=== PATIENT | male | born 1990 | race Caucasian/White ===

== ENCOUNTER 2018-09-17 07:03 | Emergency (ER) | payer BC ==
[2018-09-17 07:32] VITALS: BP 128/69
[2018-09-17 07:51] LABS: Influenza A Molecular NEGATIVE (Negative); Influenza B Molecular NEGATIVE (Negative)
--- NOTE | 2018-09-17 08:14 | UC ---
Hypertension HPI - History of Current Complaint Chief Complaint: UCGeneralIllness Stated Complaint: FEVER,ACHES,COUGH Time Seen by Provider: 09/17/18 07:59 - Allergies/Home Medications Allergies/Adverse Reactions: Allergies Allergy/AdvReac Type Severity Reaction Status Date / Time No Known Allergies Allergy Verified 09/17/18 07:29 Home Medications: Home Medications Lisinopril TAB* [Prinivil TAB*] 2.5 mg PO DAILY 09/17/18 [History Confirmed 10/04] PMH/Surg Hx/FS Hx/Imm Hx - Surgical History Surgical History: None - Social History Alcohol Use: Occasionally Substance Use Type: None Smoking Status (MU): Never Smoked Tobacco Physical Exam Vital Signs: Initial Vital Signs Temp 98.4 F 09/17/18 07:28 Pulse 102 09/17/18 07:28 Resp 16 09/17/18 07:28 BP 128/69 09/17/18 07:28 Pulse Ox 98 09/17/18 07:28 Discharge - Discharge Plan Referrals: Sammi Silva PA [Primary Care Provider] -
--- NOTE | 2018-09-17 08:28 | UC ---
FLU HPI - HPI Summary HPI Summary: Pt presents with c/o sudden onset of body aches chills fever cough X 1 day. Pt is concerned he has the flu. - History of Current Complaint Chief Complaint: UCGeneralIllness Stated Complaint: FEVER,ACHES,COUGH Time Seen by Provider: 09/17/18 07:59 Hx Obtained From: Patient Onset/Duration: Sudden Onset, Lasting Days, Still Present Severity Currently: Mild Severity Initially: Mild Pain Intensity: 3 Associated Signs & Symptoms: Positive: Fever, Myalgia, Cough Related Hx: Possible Flu/Infectious Exposure - Risk Factors Influenza Risk Factors: Negative - Allergy/Home Medications Allergies/Adverse Reactions: Allergies Allergy/AdvReac Type Severity Reaction Status Date / Time No Known Allergies Allergy Verified 09/17/18 07:29 Home Medications: Home Medications Lisinopril TAB* [Prinivil TAB*] 2.5 mg PO DAILY 09/17/18 [History Confirmed 10/04] PMH/Surg Hx/FS Hx/Imm Hx Previously Healthy: Yes - Surgical History Surgical History: None - Family History Known Family History: Positive: Cardiac Disease - Social History Occupation: Employed Full-time Lives: With Family Alcohol Use: Occasionally Substance Use Type: None Smoking Status (MU): Never Smoked Tobacco Have You Smoked in the Last Year: No Review of Systems All Other Systems Reviewed And Are Negative: Yes Constitutional: Positive: Fever, Chills, Fatigue Skin: Positive: Negative Eyes: Positive: Negative ENT: Positive: Sore Throat Respiratory: Positive: Cough Cardiovascular: Positive: Negative Gastrointestinal: Positive: Negative Genitourinary: Positive: Negative Motor: Positive: Negative Neurovascular: Positive: Negative Musculoskeletal: Positive: Myalgia Neurological: Positive: Negative Psychological: Positive: Negative Is Patient Immunocompromised?: No Physical Exam Triage Information Reviewed: Yes Appearance: Well-Appearing Vital Signs: Initial Vital Signs Temp 98.4 F 09/17/18 07:28 Pulse 102 09/17/18 07:28 Resp 16 09/17/18 07:28 BP 128/69 09/17/18 07:28 Pulse Ox 98 09/17/18 07:28 Vital Signs Reviewed: Yes Eye Exam: Normal ENT: Positive: TM bulging - left Dental Exam: Normal Neck exam: Normal Respiratory Exam: Normal Cardiovascular Exam: Normal Musculoskeletal Exam: Normal Neurological Exam: Normal Psychological Exam: Normal Skin Exam: Normal Flu Course/Dx - Differential Dx/Diagnosis Differential Diagnosis/HQI/PQRI: Influenza, Upper Respiratory Infection Provider Diagnosis: Viral syndrome Discharge - Sign-Out/Discharge Documenting (check all that apply): Patient Departure All imaging exams completed and their final reports reviewed: No Studies - Discharge Plan Condition: Stable Disposition: HOME Patient Education Materials: Viral Syndrome (ED) Referrals: Sammi Silva PA [Primary Care Provider] - If Needed - Billing Disposition and Condition Condition: STABLE Disposition: Home - Attestation Statements Provider Attestation: I was available for consult. This patient was seen by the [facility]. The patient was not presented to, seen by, or examined by me. EK
== END 2018-09-17 08:26 | disposition home or self-care (01) ==
LOC: UCCORT 07:03
DX: B34.9 Viral infection, unspecified (principal); R05 Cough; J02.9 Acute pharyngitis, unspecified; M79.10 Myalgia, unspecified site
CPT/HCPCS: 99201; G0463